=== PATIENT | female | born 1955 | race African-American/Black ===

== ENCOUNTER → 2016-10-15 12:35 | Outpatient (CLI) | payer OTHER | END | disposition home or self-care (01) | LOC: D.MRI 12:35 | DX: M25.511 Pain in right shoulder (principal) ==

== ENCOUNTER → 2016-11-23 16:51 | Outpatient (CLI) | payer OTHER | END | disposition home or self-care (01) | LOC: D.MAMMO 11-21 15:15 | DX: Z12.31 Encounter for screening mammogram for malignant neoplasm of breast (principal) ==

== ENCOUNTER 2020-01-21 08:00 | Outpatient (CLI) | payer OTHER | END 2020-01-21 23:59 | disposition home or self-care (01) | LOC: D.MAMMO 08:00 | PROVIDERS: ATTEND Family Medicine | DX: Z12.31 Encounter for screening mammogram for malignant neoplasm of breast (principal) ==